=== PATIENT | male | born 1995 | race Caucasian/White ===

== ENCOUNTER 2020-09-09 23:23 | Emergency (ER) | payer MEDICAID, SELFPAY ==
[2020-09-09 23:25] VITALS: BP 136/70; PULSE 85; RESP 16; TEMP 36.6; O2SAT 100; BMI 23.0
--- NOTE | 2020-09-09 23:45 | ED.DCSUM_ITS ---
History of Present Illness Chief Complaint: Rash Informant: Patient Onset: Today Current Severity: Mild Maximum Severity: Mild Narrative: She reports noting left-sided face was sore and swelling of the lymph nodes behind his left ear yesterday. He was seen at [facility] in [place] and had a negative strep test. Today patient noted rash over his left forehead. He does note that his vision is blurred. He denies any recent URI symptoms. No recent trauma. Past Medical History - Allergies and Home Meds Allergies/Adverse Reactions: Allergies iodine Allergy (Verified 09/09/20 23:25) Hives shellfish derived Allergy (Verified 09/09/20 23:25) Hives Primary Care Physician: NOT,DEFINED [NON-STAFF] - Past Medical History: None Lives: With Family Review of Systems General: Denies: Chills, Fever Eyes: Reports: Blurred vision - left ENT: Reports: - - Swollen lymph nodes on left neck. Denies: Sore throat Cardiovascular: Denies: Chest pain Respiratory: Denies: Dyspnea, Cough Gastrointestinal: Denies: Abdominal pain, Vomiting, Diarrhea Genitourinary: Denies: Dysuria Musculoskeletal: Denies: Swelling, Extremity Pain Skin: Reports: Rash Neurological: Denies: Headache Hematologic: Denies: Easy bruising, Easy bleeding Allergy: Denies: Swelling of the mouth Physical Exam Vital Signs/Narrative: Vital Signs Temp Pulse Resp BP Pulse Ox 09/09/20 23:25 97.8 F 85 16 136/70 H 100 Inital Vital Signs reviewed: Yes General: Well nourished, Well developed Head: Normocephalic ENT: Moist mucous membranes, TM's clear Neck: - - Left postauricular lymphadenopathy Cardiovascular: Regular rate, Regular rhythm Respiratory: No distress, CTA bilaterally Abdomen: Soft, Nontender Extremities: Nontender Skin: - - Scattered erythematous rash with small blisters noted to the left forehead. Some lesions noted onto the left upper eyelid. Neurological: Alert, Oriented x3 Psychological: Normal affect Diagnostic/Tx/Re-eval - Medical Decision Making Fluorescein was applied to the left eye. There is mild diffuse uptake, but no focal lesions noted at this time. Patient is given p.o. acyclovir and prednisone. I did speak with Dr. Mora, on-call for ophthalmology. He states the patient can use cold compresses and artificial tears for tonight. He would like to see the patient in the office tomorrow for a repeat exam. Patient be given this number and information. Patient will be given prescriptions for acyclovir, prednisone, as well as Sherman to help control pain. ED Disposition - Plan for ED Patient: Disposition: Home or Assisted Living Diagnosis: Shingles Instructions: ED Shingles (Herpes Zoster) Prescriptions: Prednisone [Deltasone] 40 mg PO DAILY #10 tab Hydrocodone Bitart/Apap 5-325 [Sherman 5MG-325MG] 1 tab PO Q6H PRN PRN 3 Days #10 tab PRN Reason: Pain Acyclovir [Zovirax] 800 mg PO 5X/DAY #35 tab Referrals: Elver Mora MD [STAFF PHYSICIAN] - 1 Day
[2020-09-09] MEDS: Fluorescein 1 MG STRIP 1 STRIP LEFT EYE (23:50)
[2020-09-10] MEDS: HYDROcodone Bitartrate/Apap 5/325 Tablet PO (00:07)
[2020-09-10] MEDS: predniSONE 20 MG Tablet 60 MG PO (00:08)
[2020-09-10] MEDS: Acyclovir 800 MG Tablet PO (00:08)
== END 2020-09-10 00:26 | disposition home or self-care (01) ==
LOC: ED 09-10 00:15
PROVIDERS: Emergency Provider Emergency Medicine
DX: B02.9 Zoster without complications (principal)
CPT/HCPCS: 99284